=== PATIENT | male | born 1965 | race Two or more races ===

== ENCOUNTER → 2016-06-01 | Outpatient (CLI) | payer BC ==
--- NOTE | 2016-06-01 08:12 | RAD ---
Left wrist, 4 views, 06/01/2016: History: Wrist pain, fall No fracture or dislocation is identified. There is minimal patchy bony demineralization. There is mild soft tissue swelling about the wrist. IMPRESSION: No acute bony abnormality is detected.
== END | disposition home or self-care (01) ==
LOC: DXRADRC 07:39
PROVIDERS: ATTEND Physician Assistant
DX: M25.532 Pain in left wrist (principal); W19.XXXD Unspecified fall, subsequent encounter
CPT/HCPCS: 73110

== ENCOUNTER → 2019-12-31 | Outpatient (CLI) | payer BC ==
[~2019-12-31] MED LIST: IOHEXOL 300 MG/ML 75 ML VIAL. IV ONE
[2019-12-31 10:07] LABS: ALBUMIN 3.5 g/dL (3.4-5.0); ALBUMIN/GLOBULIN RATIO 0.9 (1.0-1.7); C REACTIVE PROTEIN 38.9 mg/L (0-3.3); CREATININE 1.1 mg/dL (0.7-1.3); GFR 70.3; POTASSIUM 3.9 mmol/L (3.5-5.1); TOTAL BILIRUBIN 0.4 mg/dL (0.2-1.0); TOTAL PROTEIN 7.6 g/dL (6.4-8.2)
[2019-12-31 10:10] LABS: BASO % 1 % (0-3); EOS # 0.1 x10^3/uL (0.0-0.7); EOS % 2 % (0-3); HEMATOCRIT 49.8 % (39.0-53.0); HEMOGLOBIN 16.8 g/dL (13.0-17.5); LYMPH # 1.5 x10^3/uL (1.0-4.8); LYMPH % 23 % (24-48); MEAN CORPUSCULAR HEMOGLOBIN 31 pg (25-35); MEAN CORPUSCULAR HGB CONC 34 g/dL (31-37); MEAN CORPUSCULAR VOLUME 93 fL (79-100); MONO # 0.6 x10^3/uL (0.0-1.1); MONO % 9 % (0-9); NEUT # 4.4 x10^3uL (1.8-7.7); NEUT % 66 % (31-73); PLATELET COUNT 303 x10^3/uL (140-400); RED BLOOD COUNT 5.35 x10^6/uL (4.30-5.70); WHITE BLOOD COUNT 6.7 x10^3/uL (4.0-11.0)
--- NOTE | 2019-12-31 10:56 | RAD ---
Examination: CT ABD PELV W/ORAL IV CONTRAST History: Reason: PAIN, DRINKING [id number] / Spl. Instructions: / History: Comparison/Correlation: None Findings: Axial images of the abdomen and posterior obtained following IV contrast. Sagittal and coronal reformatted images were provided. The visualized lung bases are clear. Fatty infiltration of the liver is present. Spleen is unremarkable. Pancreas and adrenal glands are normal. Kidneys are unremarkable. Appendix is normal. No bowel obstruction. Circumferential wall thickening of the proximal sigmoid colon is present with surrounding stranding. Diverticuli are present involving the segment of the colon in particular. No loculated collection or ascites. No extraluminal gas. No enlarged abdominal or pelvic lymph nodes. Abdominal aorta is unremarkable for the patient's age. Gallbladder fossa is unremarkable. Urinary bladder is unremarkable. No acute bony process. Impression: Sigmoid diverticulitis. Follow-up to resolution is recommended to exclude possibility of underlying neoplastic etiology accounting for the wall thickening and associated findings. Fatty infiltration of the liver. PQRS Compliance Statement: One or more of the following individualized dose reduction techniques were utilized for this examination: 1. Automated exposure control 2. Adjustment of the mA and/or kV according to patient size 3. Use of iterative reconstruction technique Electronically signed by: Emeterio Wills MD (12/31/2019 10:53 AM) [id number]
[2019-12-31 11:55] LABS: % BANDS 3 % (0-9); % LYMPHS 29 % (24-48); % MONOS 9 % (0-10); % SEGS 59 % (35-66); PLT ESTIMATE ADEQUATE (ADEQUATE)
[2019-12-31 11:56] LABS: TOXIC GRANULATION SLIGHT
== END ==
LOC: PMG 08:56
PROVIDERS: ATTEND Physician Assistant Medical
DX: K57.32 Diverticulitis of large intestine without perforation or abscess without bleeding (principal); K76.0 Fatty (change of) liver, not elsewhere classified
CPT/HCPCS: 36415; 74177; 80053; 85007; 85025; 86140; Q9967